=== PATIENT | female | born 1970 | race Hispanic/Latino ===

== ENCOUNTER → 2017-09-04 | Outpatient (CLI) | payer OTHER ==
[~2017-09-04] MED LIST: ACHD5005 PO; DOCU100C37 PO; IBUP-1773 PO; PREN1TAB39 PO
--- NOTE | 2017-09-04 13:51 | Diagnostic Imaging Report ---
INDICATION: Routine screening. COMPARISON is made with prior study from 12/29/2011. Technique: Bilateral 3d digital tomographic views were obtained with [employer] and reviewed on a [employer] workstation. In addition, CAD - computer aided detection was utilized. Comparison: None. Both breasts are heterogeneously dense, limiting the sensitivity of mammography. No dominant mass or malignant-appearing microcalcifications are seen. The axillae are unremarkable. IMPRESSION: ACR BI-RADS Category 1: Negative. Result letter will be mailed to the patient. Note: At least 10% of breast cancer is not imaged by mammography. Dictated by: Dictated on workstation # [id number]
== END ==
LOC: RAD 09:32
PROVIDERS: ATTEND Nurse Practitioner Family
DX: Z12.31 Encounter for screening mammogram for malignant neoplasm of breast (principal)
CPT/HCPCS: 77067

== ENCOUNTER 2021-05-24 10:08 | Emergency (ER) | payer OTHER ==
[~2021-05-24] VITALS: Ht 149 cm; Wt 67.0 kg
[2021-05-24 10:41] VITALS: BP 130/79
[2021-05-24] MEDS ORDERED: KETOROLAC 30 MG/ML VIAL IVP ONE (11:30)
[2021-05-24] MEDS ORDERED: LACTATED RINGERS 1,000 ML IV SCH (11:30)
--- NOTE | 2021-05-24 11:31 | ED GI ---
General Chief Complaint: Abdominal/GI Problems Stated Complaint: ABD PAIN Nursing Triage Note: C/O UPPER ABD PAIN X2 YEARS, WORSE LAST 2 DAYS Source of Information: Patient Exam Limitations: No Limitations (CRISELDA REYES APRN) History of Present Illness Date Seen by Provider: May 24, 2021 Time Seen by Provider: 11:29 Initial Comments To ER with c/o epigastric abd pain x2 years worse x3 days. Food makes it worse. No fevers or chills. Timing/Duration: 1-2 Days Severity/Quality: Moderate Location: Epigastric Radiation: No Radiation Activities at Onset: None Associated Symptoms: Nausea/Vomiting (CRISELDA REYES APRN) Allergies and Home Medications Allergies Coded Allergies: No Known Drug Allergies (Unverified , 12/31/09) Patient Home Medication List Home Medication List Reviewed: Yes (CRISELDA REYES APRN) Docusate Sodium (Docusate Sodium) 100 Mg Capsule, 100 MG PO BID PRN for CONSTIPATION Prescribed by: MARGARET HERNADEZ on 04/20/15 0906 Hydrocodone Bit/Acetaminophen (Lortab 5 Mg Tablet) 1 Each Tablet, 1-2 TAB PO Q6H PRN for PAIN Prescribed by: MARGARET HERNADEZ on 04/20/15 0906 Hydrocodone/Acetaminophen (Hydrocodone-Acetamin 5-325 mg) 1 Each Tablet, 1 TAB PO Q4H PRN for PAIN-MODERATE (5-7) Prescribed by: CRISELDA REYES on 05/24/21 1214 Ibuprofen (Ibuprofen) 600 Mg Tablet, 600 MG PO Q6H PRN for PAIN Prescribed by: MARGARET HERNADEZ on 04/20/15 0906 Ondansetron (Ondansetron Odt) 8 Mg Tab.rapdis, 8 MG PO Q6H PRN for NAUSEA/VOMI TING Prescribed by: CRISELDA REYES on 05/24/21 1213 Review of Systems Review of Systems Constitutional: see HPI EENTM: No Symptoms Reported Respiratory: No Symptoms Reported Cardiovascular: No Symptoms Reported Gastrointestinal: See HPI, Abdominal Pain, Nausea Genitourinary: No Symptoms Reported Musculoskeletal: no symptoms reported Skin: no symptoms reported Psychiatric/Neurological: No Symptoms Reported Endocrine: No Symptoms Reported Hematologic/Lymphatic: No Symptoms Reported (CRISELDA REYES APRN) Past Lncxonb-Sulvfs-Urwlyw Hx Patient Social History Tobacco Use?: No Substance use?: No Alcohol Use?: Yes Alcohol Frequency: Once in a while (CRISELDA REYES APRN) Past Medical History Surgery/Hospitalization HX: TYPE 2 DIABETES, Reproductive Disorders: No (CRISELDA REYES APRN) Family Medical History Patient reports no known family medical history. Physical Exam Vital Signs Vital Signs - First Documented 05/24/21 10:41 Temp 36.9 Pulse 66 Resp 18 B/P (MAP) 130/79 (96) Pulse Ox 100 O2 Delivery Room Air (GEO WATERMAN MD) Vital Signs Capillary Refill : Less Than 3 Seconds (CRISELDA REYES APRN) Height/Weight/BMI Height: 5'1.00" Weight: 183lbs. oz. 83.910100ti; 30.00 BMI Method: General Appearance: WD/WN, no apparent distress HEENT: PERRL/EOMI, normal ENT inspection Neck: non-tender, full range of motion Respiratory: normal breath sounds, no respiratory distress, no accessory muscle use Cardiovascular: regular rate, rhythm, no murmur Gastrointestinal: normal bowel sounds, soft, tenderness Extremities: normal range of motion, non-tender Neurologic/Psychiatric: alert, normal mood/affect, oriented x 3 Skin: normal color, warm/dry (CRISELDA REYES APRN) Progress/Results/Core Measures Results/Orders Lab Results Laboratory Tests Test 05/24/21 11:40 05/24/21 11:50 Range/Units White Blood Count 6.7 4.3-11.0 10^3/uL Red Blood Count 4.41 3.80-5.11 10^6/uL Hemoglobin 13.8 11.5-16.0 g/dL Hematocrit 39 35-52 % Mean Corpuscular Volume 89 80-99 fL Mean Corpuscular Hemoglobin 31 25-34 pg Mean Corpuscular Hemoglobin Concent 35 32-36 g/dL Red Cell Distribution Width 12.4 10.0-14.5 % Platelet Count 210 130-400 10^3/uL Mean Platelet Volume 11.1 9.0-12.2 fL Immature Granulocyte % (Auto) 0 % Neutrophils (%) (Auto) 75 42-75 % Lymphocytes (%) (Auto) 19 12-44 % Monocytes (%) (Auto) 5 0-12 % Eosinophils (%) (Auto) 0 0-10 % Basophils (%) (Auto) 1 0-10 % Neutrophils # (Auto) 5.0 1.8-7.8 10^3/uL Lymphocytes # (Auto) 1.3 1.0-4.0 10^3/uL Monocytes # (Auto) 0.3 0.0-1.0 10^3/uL Eosinophils # (Auto) 0.0 0.0-0.3 10^3/uL Basophils # (Auto) 0.0 0.0-0.1 10^3/uL Immature Granulocyte # (Auto) 0.0 0.0-0.1 10^3/uL Sodium Level 139 135-145 MMOL/L Potassium Level 3.9 3.6-5.0 MMOL/L Chloride Level 107 98-107 MMOL/L Carbon Dioxide Level 21 21-32 MMOL/L Anion Gap 11 5-14 MMOL/L Blood Urea Nitrogen 9 7-18 MG/DL Creatinine 0.63 0.60-1.30 MG/DL Estimat Glomerular Filtration Rate 108 BUN/Creatinine Ratio 14 Glucose Level 170 H 70-105 MG/DL Calcium Level 8.5 8.5-10.1 MG/DL Corrected Calcium 8.3 L 8.5-10.1 MG/DL Total Bilirubin 0.6 0.1-1.0 MG/DL Aspartate Amino Transf (AST/SGOT) 21 5-34 U/L Alanine Aminotransferase (ALT/SGPT) 22 0-55 U/L Alkaline Phosphatase 74 40-136 U/L Total Protein 7.4 6.4-8.2 GM/DL Albumin 4.2 3.2-4.5 GM/DL Lipase 25 8-78 U/L Serum Test, Qualitative NEGATIVE NEGATIVE Urine Color YELLOW Urine Clarity CLEAR Urine pH 7.5 5-9 Urine Specific [place] 1.010 L 1.016-1.022 Urine Protein NEGATIVE NEGATIVE Urine Glucose (UA) 1+ H NEGATIVE Urine Ketones NEGATIVE NEGATIVE Urine Nitrite NEGATIVE NEGATIVE Urine Bilirubin NEGATIVE NEGATIVE Urine Urobilinogen 0.2 < = 1.0 MG/DL Urine Leukocyte Esterase NEGATIVE NEGATIVE Urine RBC (Auto) NEGATIVE NEGATIVE Urine RBC NONE /HPF Urine WBC 0-2 /HPF Urine Squamous Epithelial Cells 2-5 /HPF Urine Renal Epithelial Cells NONE /HPF Urine Crystals NONE /LPF Urine Bacteria TRACE /HPF Urine Casts NONE /LPF Urine Mucus NEGATIVE /LPF Urine Yeast FEW H /HPF Urine Culture Indicated YES (GEO WATERMAN MD) Medications Given in ED Current Medications Medications Dose Ordered Sig/Raghav Route Start Time Stop Time Status Last Admin Dose Admin Ketorolac Tromethamine 15 mg ONCE ONCE IVP 05/24/21 11:30 05/24/21 11:31 DC 05/24/21 11:47 15 MG (GEO WATERMAN MD) Vital Signs/I&O 05/24/21 10:41 Temp 36.9 Pulse 66 Resp 18 B/P (MAP) 130/79 (96) Pulse Ox 100 O2 Delivery Room Air (GEO WATERMAN MD) Blood Pressure Mean: 96 Departure Impression Primary Impression: Symptomatic cholelithiasis Disposition: HOME, SELF-CARE Condition: Stable Departure-Patient Inst. Decision time for Depature: 12:12 (CRISELDA REYES APRN) Referrals: [facility] [place] (PCP/Family) Primary Care Physician Patient Instructions: Gallstones (DC) Add. Discharge Instructions: 1. Low-fat bland diet without greasy foods for the next 24 to 48 hours. Take the pain medication and nausea medication as directed. Follow-up with a surgeon of your choosing next week. Call on Thursday to make an appointment. You will need to discuss having your gallbladder removed. All discharge instructions reviewed with patient and/or family. Voiced understanding. Scripts Ondansetron (Ondansetron Odt) 8 Mg Tab.rapdis 8 MG PO Q6H PRN for NAUSEA/VOMITING, #14 TAB Prov: CRISELDA ERYES APRN 05/24/21 Hydrocodone/Acetaminophen (Hydrocodone-Acetamin 5-325 mg) 1 Each Tablet 1 TAB PO Q4H PRN for PAIN-MODERATE (5-7), #14 TAB Prov: CRISELDA REYES APRN 05/24/21 ATTENDING PHYSICIAN NOTE: I was physically present as attending physician in the emergency department during the care of this patient, but I was not directly involved in the decision making or delivery of care for this patient. (GEO WATERMAN MD) CRISELDA REYES APRN May 24, 2021 11:31 GEO WATERMAN MD May 24, 2021 19:13
[2021-05-24 11:49] LABS: BASOPHILS % (AUTO) 1 % (0-10); EOSINOPHILS % (AUTO) 0 % (0-10); HEMATOCRIT 39 % (35-52); HEMOGLOBIN 13.8 g/dL (11.5-16.0); LYMPHOCYTES # (AUTO) 1.3 10^3/uL (1.0-4.0); LYMPHOCYTES % (AUTO) 19 % (12-44); MEAN CORPUSCULAR HEMOGLOBIN 31 pg (25-34); MEAN CORPUSCULAR HGB CONC 35 g/dL (32-36); MEAN CORPUSCULAR VOLUME 89 fL (80-99); MEAN PLATELET VOLUME 11.1 fL (9.0-12.2); MONOCYTES # (AUTO) 0.3 10^3/uL (0.0-1.0); MONOCYTES % (AUTO) 5 % (0-12); NEUTROPHILS % (AUTO) 75 % (42-75); PLATELET COUNT 210 10^3/uL (130-400); WHITE BLOOD COUNT 6.7 10^3/uL (4.3-11.0)
[2021-05-24 11:56] LABS: BILIRUBIN,URINE NEGATIVE (NEGATIVE); CLARITY,URINE CLEAR; COLOR,URINE YELLOW; GLUCOSE, URINE (UA) 1+ (NEGATIVE); KETONES,URINE NEGATIVE (NEGATIVE); LEUKOCYTE ESTERASE ,URINE NEGATIVE (NEGATIVE); NITRITE,URINE NEGATIVE (NEGATIVE); PH,URINE 7.5 (5-9); PROTEIN,URINE NEGATIVE (NEGATIVE)
[2021-05-24 12:01] LABS: ALBUMIN 4.2 GM/DL (3.2-4.5)
[2021-05-24 12:02] LABS: POTASSIUM 3.9 MMOL/L (3.6-5.0)
[2021-05-24 12:03] LABS: CALCIUM 8.5 MG/DL (8.5-10.1)
[2021-05-24 12:04] LABS: TOTAL PROTEIN 7.4 GM/DL (6.4-8.2)
[2021-05-24 12:06] LABS: BACTERIA,URINE TRACE /HPF; WBC,URINE 0-2 /HPF; YEAST,URINE FEW /HPF
[2021-05-24 12:06] LABS: BILIRUBIN,TOTAL 0.6 MG/DL (0.1-1.0)
[2021-05-24 12:08] LABS: CREATININE SERUM 0.63 MG/DL (0.60-1.30)
[2021-05-24] MEDS ORDERED: ACHD5005 PO (12:13)
[2021-05-24] MEDS ORDERED: ONDA8TAB13 PO (12:13)
--- NOTE | 2021-05-24 12:36 | Diagnostic Imaging Report ---
EXAMINATION: US Abdomen limited. TECHNIQUE: Multiple real-time grayscale images were obtained over the right upper quadrant in various projections. HISTORY: RUQ pain. COMPARISON: None available. FINDINGS: Pancreas: The visualized portions of the pancreas are normal. Liver: Increased echogenicity of the liver and normal contour which can be seen with hepatic steatosis. No focal lesions are seen. The portal vein is patent with hepatopetal flow. Gallbladder and biliary tree: The gallbladder contains multiple stones without wall thickening, pericholecystic fluid, or sonographic Eh sign. There is no biliary ductal dilation. The common duct measures 0.3 cm. Right kidney: The right kidney is normal without hydronephrosis. Aorta and IVC: The visualized aorta and inferior vena cava are normal. Fluid: No ascites is seen. IMPRESSION: 1. Cholelithiasis without ultrasound findings of acute cholecystitis. 2. Hepatic steatosis. Dictated by: Dictated on workstation # [id number]
== END 2021-05-24 12:33 | disposition home or self-care (01) ==
LOC: EDUNIT# 10:08 → ER 10:12
DX: K80.20 Calculus of gallbladder without cholecystitis without obstruction (principal); K76.0 Fatty (change of) liver, not elsewhere classified
CPT/HCPCS: 36415; 76705; 80053; 81000; 83690; 84703; 85025; 87088; 96361; 96374

== ENCOUNTER 2021-07-25 05:41 | Outpatient (CLI) | payer SELFPAY ==
[~2021-07-25] VITALS: Ht 154.9 cm; Wt 64.8 kg
[~2021-07-25 05:41] MED LIST changes: +ONDA8TAB13 PO
[2021-07-30] MEDS ORDERED: METF-397 PO (11:12)
[2021-08-01] MEDS ORDERED: ACHD5005 PO (11:05)
[2021-08-01] MEDS ORDERED: DOCU-143 PO (11:05)
== END 2021-07-30 11:25 | disposition home or self-care (01) ==
LOC: PREOP 05:41
PROVIDERS: ATTEND Surgery
DX: Z01.818 Encounter for other preprocedural examination (principal)

== ENCOUNTER 2021-08-01 08:03 | Day surgery (SDC) | payer OTHER ==
[~2021-08-01] VITALS: Ht 154.9 cm; Wt 64.8 kg
[2021-08-01] VITALS (11 sets, daily range): BP systolic 99–129; BP diastolic 46–78
[~2021-08-01 08:03] MED LIST changes: +METF-397 PO
--- NOTE | 2021-08-01 08:46 | Progress Note-Pre Operative ---
Pre-Operative Progress Note H&P Reviewed The H&P was reviewed, patient examined and no changes noted. Date Seen by Provider: Aug 01, 2021 Time Seen by Provider: 08:45 Date H&P Reviewed: Aug 01, 2021 Time H&P Reviewed: 08:45 Pre-Operative Diagnosis: ruq abd pain, cholelithiasis CELESTINA EATON DO Aug 01, 2021 08:46
[2021-08-01] MEDS ORDERED: ROCURONIUM 10 MG/ML 5 ML SYRINGE IV ONE (08:50)
[2021-08-01] MEDS ORDERED: proPOfol 200 MG/20 ML (DIPRIVAN) VIAL IV ONE (08:50)
[2021-08-01] MEDS ORDERED: SEVOFLURANE (ULTANE) 15 ML INHAL SOLN ONE ×5 (08:50→10:53)
[2021-08-01] MEDS ORDERED: fentaNYL INJ 100 MCG/2 ML AMP ONE (08:50)
[2021-08-01] MEDS ORDERED: LIDOCAINE PF 2% 5 ML (XYLOCAINE) VIAL ONE (08:50)
[2021-08-01] MEDS ORDERED: MIDAZOLAM 2 MG/2 ML (VERSED) VIAL ONE (08:50)
[2021-08-01] MEDS ORDERED: ONDANSETRON 4 MG/2 ML (SDV) Z0FRAN ONE (08:50)
[2021-08-01] MEDS ORDERED: LIDOCAINE/EPI 2% 1:100,00 (XYLOCAINE) 20 ML VIAL ONE (08:59)
[2021-08-01] MEDS ORDERED: ceFAZolin 2 GM IV Premixed 50 ML IV ONE (09:15)
[2021-08-01] MEDS ORDERED: LACTATED RINGERS 1,000 ML IV PRN (09:15)
[2021-08-01] MEDS ORDERED: ATROPINE INJ 0.4 MG/ML SDV ONE (10:39)
--- NOTE | 2021-08-01 11:02 | Progress Note-Post Operative ---
Post-Operative Progess Note Surgeon (s)/Hospital Receptionist (s) Surgeon CELESTINA EATON DO Hospital Receptionist: Pascual Verma to assist in retraction dissection and closure. Pre-Operative Diagnosis ruq abd pain, cholelithiasis Post-Operative Diagnosis same Procedure & Operative Findings Date of Procedure 08/01/21 Procedure Performed/Findings PROCEDURE: Laparoscopic cholecystectomy with intraoperative cholangiogram. COMPLICATIONS: None. PROCEDURE: The patient was taken to the operating suite and was prepped and draped in sterile fashion. A surgical pause was performed. Just superior to the umbilicus, a 12 mm incision was made. Dissection was taken down to the fascia, which was then scored and grasped with a Cecile and the abdomen was then entered. A 0 Vicryl suture was placed in a gkyypl-zs-kinrb fashion and a Katz trocar was placed and secured. Pneumoperitoneum was achieved. A 5mm trochar place in the subxyphoid and 2 in the right upper quadrant. The gallbladder was then grasped and elevated. The cystic duct, and cystic artery were then dissected out. Clip was placed on the distal portion of the cystic duct which was then partially transected. An arrow catheter was inserted into the duct. The cholangiogram was then performed. No filing defects and contrast made its way into the duodenum. Catheter removed. Clips were placed on proximal portion of the cystic duct and then the duct was then transected. Clips were placed along the proximal and distal portion of the cystic artery which was then transected. Hook cautery was used to dissect the gallbladder from the gallbladder fossa achieving hemostasis. The gallbladder was placed in an Endobag and removed through the 12 mm trocar site. The abdomen was then reinspected. Copious amounts of irrigation were used to irrigate the abdomen and there were no signs of active bleeding. Hemostasis had been achieved. The 12 mm fascial defect was then closed with 0 Vicryl suture that had been placed in a pdngye-pz-vldij fashion. The abdomen was then desufflated, the trocars were removed. The abdomen was then washed and dried. The skin was then closed using 4-0 Monocryl in a subcuticular fashion. The abdomen was washed and dried and Skin Affix was place over incisions. Patient tolerated the procedure well without any complications and was taken to the recovery room in stable condition. Anesthesia Type general Estimated Blood Loss Estimated blood loss (mL): minimal Specimens/Packing Specimens Removed gallbladder CELESTINA EATON DO Aug 01, 2021 11:02
[2021-08-01] MEDS ORDERED: DOCU-143 PO (11:05)
[2021-08-01] MEDS ORDERED: ACHD5005 PO (11:05)
--- NOTE | 2021-08-01 11:06 | Anesthesia-General Post-Op ---
General Patient Condition Mental Status/LOC: Same as Preop Cardiovascular: Satisfactory Nausea/Vomiting: Absent Respiratory: Satisfactory Pain: Controlled Complications: Absent Post Op Complications Complications None Follow Up Care/Instructions Patient Instructions None needed. Anesthesia/Patient Condition Patient Condition Patient is doing well, no complaints, stable vital signs, no apparent adverse anesthesia problems. No complications reported per nursing. LARON OCHOA CRNA Aug 01, 2021 11:06
--- NOTE | 2021-08-01 11:09 | Discharge Inst-Simple/Standard ---
Discharge Inst-Standard Discharge Medications New, Converted or Re-Newed RX: Transmitted to Pharmacy Patient Instructions/Follow Up Plan of Care/Instructions/FU: 2 weeks Ara Activity as Tolerated: Yes Discharge Diet: Regular Diet Other Inst to Patient Follow up Appt: Make appointment for 2 weeks. Instructions: No lifting greater than 10 pounds. No strenuous activity. May shower in 24 hours, no tub bath or soaking. Use incentive spirometer at home as directed. No Smoking Skin/Wound Care: You have special glue over incision, it will fall off on it's own. Symptoms to Report: Appetite Changes, Extremity Discoloration, Numbness/Tingling, Swelling Increased, Bleeding Excessive, Eyesight Changes, Pain Increased, Urine Color Change, Constipation(Persistent), Fever over 101 degree F, Pain/Pressure in chest, Urinating Difficulty, Cough Up/Vomit Blood, Heart Beat Irreg/Pounding, Pain/Pressure in jaw, Vaginal Bleeding Increase, Cramps in feet or legs, Lightheadedness, Pain/Pressure in shoulder, Diarrhea(Persistent), Memory Changes Suddenly, Questions/Concerns, Weight gain consecutive days, Dizziness/Fainting, Nausea/Vomiting, Shortness of Breath, Weight gain over 2 pounds. If eyes or skin turn yellow notify physician. If questions or concerns contact your physician Or seek help at emergency department. CELESTINA EATON DO Aug 01, 2021 11:09
[2021-08-01] MEDS ORDERED: morphine INJ 10 MG/ML 1ML (SYR OR VIAL) IVP ONE (11:15)
[2021-08-01] MEDS ORDERED: ONDANSETRON 4 MG/2 ML (SDV) Z0FRAN IVP PRN (11:15)
[2021-08-01] MEDS ORDERED: fentaNYL INJ 100 MCG/2 ML AMP IVP ONE (11:15)
[2021-08-01] MEDS ORDERED: MEPERIDINE (DEMEROL) INJ 50 MG/ML IVP ONE (11:15)
--- NOTE | 2021-08-01 11:42 | Diagnostic Imaging Report ---
INDICATION: Fluoroscopy during intraoperative cholangiogram. Fluoroscopy was provided in the OR during intraoperative cholangiogram. 8 seconds of fluoroscopic time was utilized. 38 images were obtained. Images demonstrate contrast being injected via the cystic duct remnant. There is opacification of the extrahepatic bile duct with normal flow of contrast into the duodenum. No filling defects are seen to suggest retained stone. IMPRESSION: Fluoroscopy during intraoperative cholangiogram. Dictated by: Dictated on workstation # [id number]
[2021-08-01] MEDS ORDERED: HYDROcodone/APAP 5 MG/325 MG (LORTAB) TAB ONE (12:48)
[2021-08-01] MEDS ORDERED: HYDROcodone/APAP 5 MG/325 MG (LORTAB) TAB PO ONE (13:00)
== END 2021-08-01 13:05 ==
LOC: SDC 08:03
PROVIDERS: ATTEND Surgery
DX: K80.10 Calculus of gallbladder with chronic cholecystitis without obstruction (principal)
CPT/HCPCS: 76000; 82947; 84703; 87081; 88304; 94664